=== PATIENT | female | born 1960 | race Caucasian/White ===

== ENCOUNTER 2019-04-09 05:18 | Inpatient (IN) | payer BC, OTHER ==
[~2019-04-09] VITALS: Ht 162.6 cm; Wt 105.6 kg
[~2019-04-09 05:18] MED LIST: ACET-1600 PO; GABA300C10 PO; HYDR-3241 PO; LOSA25TA25 PO
[2019-04-09] MEDS ORDERED: LACTATED RINGERS 1,000 ML IV SCH (06:02)
[2019-04-09] MEDS ORDERED: TRANEXAMIC ACID 100 MG/ML, 10ML ONE ×4 (06:22)
[2019-04-09] MEDS ORDERED: KETOROLAC 60 MG/2 ML ONE (06:22)
[2019-04-09] MEDS ORDERED: ROPIvacaine/PF 0.2%, 20 ML ONE (06:22)
[2019-04-09] MEDS ORDERED: EPINEPHRINE 1 MG/ML, 1ML ONE (06:23)
[2019-04-09] MEDS ORDERED: SODIUM CHLORIDE 0.9% 100 ML ONE (06:23)
[2019-04-09] MEDS ORDERED: GABAPENTIN 300 MG CAPSULE PO ONE (06:30)
[2019-04-09] MEDS ORDERED: ACETAMINOPHEN 500 MG TABLET PO ONE (06:30)
[2019-04-09] MEDS ORDERED: PROMETHAZINE 25 MG/ML, 1ML IM PRN (07:00)
[2019-04-09] MEDS ORDERED: ONDANSETRON 2MG/ML, 2ML IV PRN (07:00)
[2019-04-09] MEDS ORDERED: PSYLLIUM PACKET PO PRN (07:00)
[2019-04-09] MEDS ORDERED: HYDROmorphone 1 MG/ML, 1ML INJ IVPush PRN (07:00)
[2019-04-09] MEDS ORDERED: DEXAMETHASONE 4 MG/ML, 1ML IVPush SCH (07:00)
[2019-04-09] MEDS ORDERED: DIPHENHYDRAMINE 50 MG CAPSULE PO PRN (07:00)
[2019-04-09] MEDS: KETOROLAC 30 MG/1 ML IV SCH ×3 (07:00→23:38)
[2019-04-09] MEDS ORDERED: POLYETHYLENE GLYCOL 17 GM PACKET PO PRN (07:00)
[2019-04-09] MEDS: ACETAMINOPHEN 325 MG TABLET PO SCH ×4 (07:00→22:17)
[2019-04-09] MEDS ORDERED: MAGNESIUM HYDROXIDE 8%, 30ML UDC PO PRN (07:00)
[2019-04-09] MEDS ORDERED: SENNA/DOCUSATE TABLET PO PRN (07:00)
[2019-04-09] MEDS ORDERED: ONDANSETRON 4 MG TABLET PO PRN (07:00)
[2019-04-09] MEDS ORDERED: ALUMINUM/MAG/SIMETHICONE 30 ML UDC PO PRN (07:00)
[2019-04-09] MEDS ORDERED: ACETAMINOPHEN 650 MG/20.3 ML UDC PO PRN (07:00)
[2019-04-09] MEDS ORDERED: FENTANYL PF 250 MCG/5ML ONE (07:42)
[2019-04-09] MEDS ORDERED: MIDAZOLAM 1 MG/ML, 2ML ONE (07:42)
[2019-04-09] MEDS ORDERED: FENTANYL PF 100 MCG/2ML ONE (08:54)
[2019-04-09] MEDS ORDERED: HYDROmorphone 2 MG/ML, 1ML ONE (08:55)
[2019-04-09] MEDS ORDERED: OXYcodone 5 MG/5 ML ORAL.SOL UDC ONE (08:55)
[2019-04-09] MEDS: FENTANYL PF 100 MCG/2ML IV PRN ×2 (08:57→09:08)
[2019-04-09] MEDS ORDERED: hydrALAzine 20 MG/ML, 1ML IV PRN (09:00)
[2019-04-09] MEDS ORDERED: LABETALOL 5MG/ML, 20ML IV PRN (09:00)
[2019-04-09] MEDS ORDERED: ALBUTEROL SULFATE 2.5 MG/3 ML NPPB PRN (09:00)
[2019-04-09] MEDS ORDERED: METOCLOPRAMIDE 5 MG/ML, 2ML IV PRN (09:00)
[2019-04-09] MEDS: DOCUSATE 100 MG CAPSULE PO SCH ×2 (09:00→22:17)
[2019-04-09] MEDS ORDERED: KETOROLAC 30 MG/1 ML IV PRN (09:00)
[2019-04-09] MEDS ORDERED: ONDANSETRON 2MG/ML, 2ML IVPush PRN (09:00)
[2019-04-09] MEDS ORDERED: MEPERIDINE/PF 25MG/0.5ML IVPush PRN (09:00)
[2019-04-09] MEDS ORDERED: TRANEXAMIC ACID 1,000 MG in SODIUM CHLORIDE 0.9% 100 ML IVPB ONE (09:00)
[2019-04-09] MEDS ORDERED: PROMETHAZINE 25 MG/ML, 1ML IV PRN (09:00)
[2019-04-09] MEDS ORDERED: OXYcodone 5 MG/5 ML ORAL.SOL UDC PO PRN (09:00)
[2019-04-09] MEDS: HYDROmorphone 1 MG/ML, 1ML INJ IV PRN ×6 (09:02→09:58)
[2019-04-09] MEDS ORDERED: LOSARTAN MC SCH (10:30)
[2019-04-09] MEDS: POTASSIUM CHLORIDE 20 MEQ in D5%-0.45% NACL 1,000 ML IV SCH ×2 (12:29→23:38)
[2019-04-09 12:34] VITALS: BP 111/75
[2019-04-09] MEDS: OXYcodone IR 5MG TABLET PO PRN ×3 (14:17→23:38)
[2019-04-09] MEDS: CEFAZOLIN PMX 1GM/50ML 50 ML IVPB SCH ×2 (14:57→23:38)
[2019-04-09] MEDS: GABAPENTIN 300 MG CAPSULE PO SCH ×2 (14:57→22:19)
[2019-04-09] MEDS ORDERED: EPHEDRINE 50 MG/ML, 1ML ONE (15:51)
[2019-04-09] MEDS ORDERED: ONDANSETRON 2MG/ML, 2ML ONE (15:51)
[2019-04-09] MEDS ORDERED: ROCURONIUM 10MG/ML,5ML ONE (15:51)
[2019-04-09] MEDS ORDERED: CEFAZOLIN 1,000 MG ONE (15:51)
[2019-04-09] MEDS ORDERED: SUCCINYLCHOLINE 20 MG/ML, 10ML ONE (15:51)
[2019-04-09] MEDS ORDERED: DEXAMETHASONE 4 MG/ML, 1ML ONE (15:51)
[2019-04-09] MEDS ORDERED: PROPOFOL 10 MG/ML, 20ML ONE (15:51)
[2019-04-09] MEDS ORDERED: GLYCOPYRROLATE 0.2MG/1ML, 5ML ONE (15:51)
[2019-04-09] MEDS: TAMSULOSIN 0.4 MG CAP.ER.24H PO SCH (17:33)
[2019-04-09] MEDS: ASPIRIN 81 MG TABLET EC PO SCH ×2 (17:33→21:00)
[2019-04-09 21:19] VITALS: BP 111/71
[2019-04-10 01:00] VITALS: BP 104/46
[2019-04-10] MEDS: ACETAMINOPHEN 325 MG TABLET PO SCH ×3 (03:56→11:14)
[2019-04-10] MEDS: OXYcodone IR 5MG TABLET PO PRN ×3 (04:01→12:44)
[2019-04-10 04:18] VITALS: BP 96/56
[2019-04-10 07:17] VITALS: BP 103/69
[2019-04-10] MEDS: GABAPENTIN 300 MG CAPSULE PO SCH (08:54)
[2019-04-10] MEDS: TAMSULOSIN 0.4 MG CAP.ER.24H PO SCH (08:54)
[2019-04-10] MEDS: DOCUSATE 100 MG CAPSULE PO SCH (08:54)
[2019-04-10] MEDS: ASPIRIN 81 MG TABLET EC PO SCH (08:54)
[2019-04-10] MEDS ORDERED: LOSARTAN 25MG TABLET PO SCH (09:00)
[2019-04-10] MEDS: POTASSIUM CHLORIDE 20 MEQ in D5%-0.45% NACL 1,000 ML IV SCH (09:12)
== END 2019-04-10 13:15 | disposition home or self-care (01) | DRG 470 ==
LOC: ORIP 05:18 → 4NOR 10:12 → DCLOUNGE 04-10 13:01
PROVIDERS: ADMIT Orthopaedic Surgery; ATTEND Orthopaedic Surgery
PROC: 0SRB06Z Replacement of Left Hip Joint with Oxidized Zirconium on Polyethylene Synthetic Substitute, Open Approach (ICD-10-PCS; principal; 2019-04-09 07:00)
DX: M16.12 Unilateral primary osteoarthritis, left hip (principal)
CPT/HCPCS: 36415; 72170; 85014; 85018; 86850; 86900; C1713; G0378; J0171; J0690; J1100; J1170; J1885; J2250; J2405; J2704; J2795; J3010; J3480; C1776; J0330; J7120

== ENCOUNTER 2019-09-24 08:45 | Inpatient (IN) | payer OTHER ==
[~2019-09-24] VITALS: Ht 165.1 cm; Wt 117.5 kg
[~2019-09-24 08:45] MED LIST changes: +ETOD400T PO; +HYDR-3237 PO; +LOSA1TAB22 PO
[2019-10-01] MEDS ORDERED: LACTATED RINGERS 1,000 ML IV SCH (09:27)
[2019-10-01] MEDS ORDERED: ACETAMINOPHEN 500 MG TABLET PO ONE (09:30)
[2019-10-01] MEDS ORDERED: GABAPENTIN 300 MG CAPSULE PO ONE (09:30)
[2019-10-01] MEDS ORDERED: TRANEXAMIC ACID 100 MG/ML, 10ML ONE ×4 (10:50→10:51)
[2019-10-01] MEDS ORDERED: KETOROLAC 60 MG/2 ML ONE (10:50)
[2019-10-01] MEDS ORDERED: SODIUM CHLORIDE 0.9% 100 ML ONE (10:51)
[2019-10-01] MEDS ORDERED: EPINEPHRINE 1 MG/ML, 1ML ONE (10:51)
[2019-10-01] MEDS ORDERED: ROPIvacaine/PF 0.2%, 20 ML ONE (10:51)
[2019-10-01] MEDS ORDERED: MIDAZOLAM 1 MG/ML, 2ML ONE ×2 (10:57→11:30)
[2019-10-01] MEDS ORDERED: FENTANYL PF 250 MCG/5ML ONE (10:57)
[2019-10-01] MEDS ORDERED: ROCURONIUM 10MG/ML,5ML ONE (10:59)
[2019-10-01] MEDS ORDERED: CEFAZOLIN 1,000 MG ONE ×2 (10:59)
[2019-10-01] MEDS ORDERED: PROPOFOL 10 MG/ML, 20ML ONE ×2 (10:59→11:30)
[2019-10-01] MEDS ORDERED: SUCCINYLCHOLINE 20 MG/ML, 10ML ONE ×2 (10:59→11:30)
[2019-10-01] MEDS ORDERED: DEXAMETHASONE 4 MG/ML, 1ML ONE ×3 (10:59→11:30)
[2019-10-01] MEDS ORDERED: OXYcodone 5 MG/5 ML ORAL.SOL UDC PO PRN (11:30)
[2019-10-01] MEDS ORDERED: ONDANSETRON ODT 8 MG PO PRN (11:30)
[2019-10-01] MEDS ORDERED: PROMETHAZINE 25 MG/ML, 1ML IV PRN (11:30)
[2019-10-01] MEDS ORDERED: ONDANSETRON 2MG/ML, 2ML IV PRN ×2 (11:30→12:00)
[2019-10-01] MEDS ORDERED: ONDANSETRON 2MG/ML, 2ML ONE ×2 (11:30→12:55)
[2019-10-01] MEDS ORDERED: DIAZEPAM 5 MG/ML, 2ML IVPush PRN (11:30)
[2019-10-01] MEDS ORDERED: MEPERIDINE/PF 25MG/ML,1ML IVPush PRN (11:30)
[2019-10-01] MEDS ORDERED: PROMETHAZINE 12.5 MG SUPP PR PRN (11:30)
[2019-10-01] MEDS ORDERED: HALOPERIDOL 5 MG/ML IV PRN (11:30)
[2019-10-01] MEDS ORDERED: LABETALOL 5MG/ML, 20ML IV PRN (11:30)
[2019-10-01] MEDS ORDERED: ROCURONIUM 10 MG/ML,10ML ONE (11:30)
[2019-10-01] MEDS ORDERED: NEOSTIGMINE 1 MG/ML, 10ML ONE (11:30)
[2019-10-01] MEDS ORDERED: EPHEDRINE 50 MG/ML, 1ML ONE (11:30)
[2019-10-01] MEDS ORDERED: ALBUTEROL SULFATE 2.5 MG/3 ML NPPB PRN (11:30)
[2019-10-01] MEDS ORDERED: EPHEDRINE 50 MG/ML, 1ML IVPush PRN (11:30)
[2019-10-01] MEDS ORDERED: MIDAZOLAM 1 MG/ML, 2ML IV PRN (11:30)
[2019-10-01] MEDS ORDERED: hydrALAzine 20 MG/ML, 1ML IV PRN (11:30)
[2019-10-01] MEDS ORDERED: SENNA/DOCUSATE TABLET PO PRN (12:00)
[2019-10-01] MEDS ORDERED: ONDANSETRON 4 MG TABLET PO PRN (12:00)
[2019-10-01] MEDS ORDERED: ALUMINUM/MAG/SIMETHICONE 30 ML UDC PO PRN (12:00)
[2019-10-01] MEDS ORDERED: HYDROmorphone 1 MG/ML, 1ML INJ IVPush PRN (12:00)
[2019-10-01] MEDS ORDERED: TRANEXAMIC ACID 1,000 MG in SODIUM CHLORIDE 0.9% 100 ML IVPB ONE (12:00)
[2019-10-01] MEDS ORDERED: POLYETHYLENE GLYCOL 17 GM PACKET PO PRN (12:00)
[2019-10-01] MEDS ORDERED: ACETAMINOPHEN 650 MG/20.3 ML UDC PO PRN (12:00)
[2019-10-01] MEDS ORDERED: MAGNESIUM HYDROXIDE 8%, 30ML UDC PO PRN (12:00)
[2019-10-01] MEDS ORDERED: PSYLLIUM PACKET PO PRN (12:00)
[2019-10-01] MEDS ORDERED: DIPHENHYDRAMINE 50 MG/ML, 1ML IVPush PRN (12:00)
[2019-10-01] MEDS ORDERED: DIPHENHYDRAMINE 25 MG CAPSULE PO PRN (12:00)
[2019-10-01] MEDS ORDERED: FENTANYL PF 100 MCG/2ML ONE ×4 (12:11→13:53)
[2019-10-01] MEDS: FENTANYL PF 100 MCG/2ML IV PRN ×4 (13:32→14:11)
[2019-10-01] MEDS ORDERED: OXYcodone 5 MG/5 ML ORAL.SOL UDC ONE (13:54)
[2019-10-01] MEDS ORDERED: KETOROLAC 30 MG/1 ML ONE (13:57)
[2019-10-01] MEDS: KETOROLAC 30 MG/1 ML IV SCH ×2 (13:59→20:01)
[2019-10-01] MEDS ORDERED: DIAZEPAM 5 MG/ML, 2ML ONE (14:19)
[2019-10-01] MEDS ORDERED: HYDROmorphone 1 MG/ML, 1ML VIAL ONE (14:39)
[2019-10-01] MEDS: HYDROmorphone 2 MG/ML, 1ML IVPush PRN ×2 (14:42→14:55)
[2019-10-01 15:40] VITALS: BP 117/73
[2019-10-01] MEDS: POTASSIUM CHLORIDE 20 MEQ in D5%-0.45% NACL 1,000 ML IV SCH (17:00)
[2019-10-01] MEDS: GABAPENTIN 300 MG CAPSULE PO SCH ×2 (17:00→20:00)
[2019-10-01] MEDS: ASPIRIN 81 MG TABLET EC PO SCH ×2 (17:52→20:00)
[2019-10-01] MEDS: OXYcodone IR 5MG TABLET PO PRN ×2 (17:52→23:32)
[2019-10-01] MEDS: CEFAZOLIN PMX 1GM/50ML 50 ML IVPB SCH (19:56)
[2019-10-01] MEDS: DOCUSATE 100 MG CAPSULE PO SCH (20:01)
[2019-10-01 20:17] VITALS: BP 103/65
[2019-10-02 02:58] VITALS: BP 102/67
[2019-10-02] MEDS: POTASSIUM CHLORIDE 20 MEQ in D5%-0.45% NACL 1,000 ML IV SCH (03:00)
[2019-10-02] MEDS: KETOROLAC 30 MG/1 ML IV SCH (03:29)
[2019-10-02] MEDS: CEFAZOLIN PMX 1GM/50ML 50 ML IVPB SCH (03:29)
[2019-10-02] MEDS: OXYcodone IR 5MG TABLET PO PRN ×2 (03:32→07:55)
[2019-10-02] MEDS ORDERED: DEXAMETHASONE 4 MG/ML, 1ML IVPush SCH (06:00)
[2019-10-02 07:45] VITALS: BP 104/68
[2019-10-02] MEDS: DOCUSATE 100 MG CAPSULE PO SCH (07:55)
[2019-10-02] MEDS: ASPIRIN 81 MG TABLET EC PO SCH (07:56)
[2019-10-02] MEDS: GABAPENTIN 300 MG CAPSULE PO SCH (07:57)
[2019-10-02] MEDS ORDERED: TAMSULOSIN 0.4 MG CAP.ER.24H PO SCH (09:00)
[2019-10-02] MEDS ORDERED: HYDROCHLOROTHIAZIDE 25 MG TABLET PO SCH (09:00)
[2019-10-02] MEDS ORDERED: LOSARTAN 50MG TABLET PO SCH (09:00)
== END 2019-10-02 11:26 | disposition home or self-care (01) | DRG 469 ==
LOC: ORIP 10-01 08:30 → 4NE 10-01 15:31 → DCLOUNGE 10-02 11:16
PROVIDERS: ADMIT Orthopaedic Surgery; ATTEND Orthopaedic Surgery
PROC: 0SR906Z Replacement of Right Hip Joint with Oxidized Zirconium on Polyethylene Synthetic Substitute, Open Approach (ICD-10-PCS; principal; 2019-10-01 11:45)
DX: M16.11 Unilateral primary osteoarthritis, right hip (principal); E43 Unspecified severe protein-calorie malnutrition; Z68.41 Body mass index [BMI] 40.0-44.9, adult; I10 Essential (primary) hypertension; E66.9 Obesity, unspecified; G89.29 Other chronic pain; Q65.89 Other specified congenital deformities of hip; Z79.899 Other long term (current) drug therapy
CPT/HCPCS: 36415; 85014; 85018; 86850; 86900; C1713; G0378; J0171; J0690; J1100; J1170; J1885; J2250; J2405; J2704; J2710; J2795; J3010; J3360; J3480; C1776; J0330; J7120